=== PATIENT | male | born 1985 | race Caucasian/White ===

== ENCOUNTER 2025-02-09 20:47 | Emergency (ER) | payer OTHER, SELFPAY ==
--- NOTE | 2025-02-09 21:52 | ED.GENMED ---
History of Present Illness
General
Chief Complaint: Cardiac Symptoms
Source: patient
Exam Limitations: none
Time Seen by Provider: 02/09/25 21:41
Nursing documentation reviewed up to this point in time: agreed with except (Pt states he uses cocaine occasionally 'maybe once a month' last used about a month ago)
History of Present Illness
History of Present Illness:
39-year-old male w hx sleep apnea, IBS, presents for L neck, L arm, L upper chest pain. 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 Pains have been off and on since. Went to yesterday and had a normal EKG.
3 mos ago, 10 days ago and 2 days ago had 15 minute episodes of 'heavy heart palpitations' with no SOB, n/v or diaphoresis. No aggravating or relieving factors. Occurs several times every day.
He does sleep on his left arm and has had numbness in the arm upon awakening some mornings.
Past History
Past History
ED Past Medical History: Other ( sleep apnea, used to use CPAP but it got recalled and never got another one)
ED Past Surgical History: Orthopedic and Tonsilectomy
Social History
Tobacco: Non-smoker
Alcohol: None
Drug: None
Personal:
Living: with family
Review of Systems
Review of Systems
Allergies reviewed?: Yes
All Other Systems: ROS reviewed and negative except as documented in HPI and ROS
Cardiac: Reports chest pain
Musculoskeletal: Reports neck pain and other (Pain left arm)
Phy Exam
Physical Exam
Physical Exam:
GENERAL: No acute distress. A&Ox3.
CONSTITUTIONAL: Afebrile.
EYES: clear, conjunctivae normal
ENMT: moist mucus membranes
RESPIRATORY: Regular respirations, nonlabored, lungs clear.
CARDIOVASCULAR: Regular rate and rhythm, no murmurs, no rubs.
GI: Soft, nontender, normal BS
MUSCULOSKELETAL: Unable to reproduce pain with palpation of affected areas or with movement. Moves with ease. Well perfused.
SKIN: Warm, dry, pink
PSYCH: Normal mood and affect. Well kept, interactive and appropriate
NEUROLOGIC: Awake, alert and oriented. No focal neurological deficits
Course
Orders/Labs/Results
Orders:
Orders
02/09/25 20:47
ECG [Electrocardiogram (*1)] Urgent
Reason for Study: Chest Pain
02/09/25 20:48
EKG- Treatment ONCE
02/09/25 21:52
CR Chest - 2 Views Urgent
Comment:
Reason For Exam: chest pain
02/09/25 22:31
Complete Blood Count/With Diff Urgent
Comprehensive Metabolic Panel Urgent
Troponin I Urgent
Abnormal Lab Results
02/09/25
22:31
MPV 10.5 H fL
(7.4-10.4)
Absolute Monos (auto) 0.7 H 10^3/uL
(0.1-0.6)
Chloride 108 H mmol/L
(98-107)
Glucose 101 H mg/dl
(70-99)
ALT 54 H U/L
(0-50)
02/09/25 22:31
02/09/25 22:31
Vital Signs
Initial and Last Documented VS:
Initial Vital Signs
Temp Pulse Resp Pulse Ox
98.7 F 97 18 98
02/09/25 20:50 02/09/25 20:50 02/09/25 20:50 02/09/25 20:50
Last Documented Vital Signs
Temp Pulse Resp BP Pulse Ox
98.7 F 74 20 127/78 95
02/09/25 20:50 02/09/25 22:13 02/09/25 22:13 02/10/25 00:03 02/09/25 22:13
MDM/Problems Addressed
MDM/Problems Addressed:
39-year-old male w hx sleep apnea, IBS, presents for L neck, L arm, L upper chest pain. 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 Pains have been off and on since. Went to yesterday and had a normal EKG.
3 mos ago, 10 days ago and 2 days ago had 15 minute episodes of 'heavy heart palpitations' with no SOB, n/v or diaphoresis. No aggravating or relieving factors. Occurs several times every day.
He does sleep on his left arm and has had numbness in the arm upon awakening some mornings.
EKG NSR
CBC normal
CMP normal
CXR NAD
discussed dangers of using cocaine and it's affect on the heart, risk for heart attack
Referred to Cardiac hotline
*EKG
EKG Intrepretation Date: 02/09/25
Interpretation: normal
Heart Rate: 66
Rate: normal
Rhythm: sinus
[place]: normal axis
Interval: normal interval
QRS Pattern: normal QRS
Ischemia: no ischemia
*Critical Care Note
Total Time (30-74mins, 75-104mins- exclusive of procedures): Not Applicable
ED Attending Note
-
Portions of this chart may have been created with voice recognition software.� Occasional wrong word or��sound alike� substitutions may have occurred due to the inherent limitations of voice recognition software.
Discharge Plan
Departure
Patient Disposition: Home (Routine Discharge)
Date of Disposition: 02/10/25
Time of Disposition: 00:00
Patient with high blood pressure during this ER visit?: No
Condition: Good
Discharge Problem:
Atypical chest pain
Instructions: Chest Pain (DC), Chest Pain CBC Follow Up
Prescriptions:
No Action
oxycodone-acetaminophen [Endocet] 5-325 mg tablet
1 tab PO Q6H PRN (Reason: Pain) Qty: 10 0RF
Referrals:
Dominik Menard MD [Family Provider] -
Smitha Howe MD [Active] - Next open appointment
Activity Restrictions/Additional Instructions:
As we discussed, I sent your information the Cardiac hotline, someone will call you in the next 1-2 days to make appointment sooner rather than later for a more thorough cardiac evaluation.
No indication of heart attack or damage in your workup here today.
Interventions
Interventions:
*Risk Screen - Suicide Last Done: 02/09/25 20:50
*General Assessment Last Done: 02/09/25 20:50
*Neglect/Abuse Screening Last Done: 02/09/25 20:50
*ED- Fall Risk Assessment Last Done: 02/09/25 20:50
*ED COVID-19 Vaccine History Last Done: 02/09/25 20:50
*Nursing Disposition Last Done: 02/10/25 00:16
ED- Pulmonary Assessment Last Done: 02/09/25 21:30
ED- Cardiac Assessment Last Done: 02/09/25 21:30
Discharge Date and Time
Discharge Date/Time: 02/10/25 00:16
Print Language: CHILEAN
[2025-02-09 22:42] LABS: % Basophils 0.6 % (0-2); % Eosinophils 3.5 % (0-6); % Immature Granulocytes 0.2 % (0-0.5); % Lymphocytes 31.9 % (20.5-51.1); % Monocytes 7.5 % (1.7-9.3); % Neutrophils 56.3 % (42.2-75.2); Absolute Basophils 0.1 10^3/uL (0-0.2); Absolute Eosinophils 0.3 10^3/uL (0-0.7); Absolute Lymphocytes 2.8 10^3/uL (1.2-3.4); Absolute Monocytes 0.7 10^3/uL (0.1-0.6); Hematocrit 42.9 % (39.0-52.0); Hemoglobin 15.3 g/dL (13.0-18.0); Mean Corp Hgb Conc. 35.7 g/dL (33.0-37.0); Mean Corpuscular Hgb 30.5 pg (27.0-31.0); Mean Corpuscular Volume 85.5 fL (80.0-94.0); Mean Platelet Volume 10.5 fL (7.4-10.4); Nucleated Red Blood Cells % 0 % (-); Platelet Count 254 10^3/uL (130-400); Red Blood Cell Count 5.02 10^6/uL (4.70-6.10); White Blood Cell Count 8.8 10^3/uL (4.8-10.8)
[2025-02-09 22:56] LABS: ALT (SGPT) 54 U/L (0-50); AST (SGOT) 30 U/L (17-59); Albumin 4.6 g/dl (3.5-5.0); Alkaline Phosphatase 63 U/L (38-126); Blood Urea Nitrogen 13 mg/dl (9-20); Calcium 9.5 mg/dl (8.4-10.2); Carbon Dioxide 26 mmol/L (22-30); Chloride 108 mmol/L (98-107); Glucose 101 mg/dl (70-99); Potassium 3.8 mmol/L (3.5-5.1); Sodium 142 mmol/L (135-145); Total Bilirubin 0.5 mg/dl (0.2-1.3); Total Protein 7.4 g/dl (6.3-8.2); eGFR > 60.00
[2025-02-09 23:03] LABS: Troponin I < 0.012 ng/ml
[2025-02-10 00:01] VITALS: BP 127/78
[2025-02-10 00:03] VITALS: BP 127/78
== END 2025-02-10 00:16 | disposition home or self-care (01) ==
LOC: EMR 20:47
PROVIDERS: Registered Nurse; EMERGENCY PHYSICIAN Emergency Medicine; FAMILY PHYSICIAN Family Medicine
DX: R07.89 Other chest pain (principal); M54.2 Cervicalgia; M79.602 Pain in left arm; R20.0 Anesthesia of skin; F14.90 Cocaine use, unspecified, uncomplicated; G47.30 Sleep apnea, unspecified; K58.9 Irritable bowel syndrome, unspecified; J45.909 Unspecified asthma, uncomplicated; F17.210 Nicotine dependence, cigarettes, uncomplicated
CPT/HCPCS: 99283; 71046; 80053; 84484; 85025; 93005

== ENCOUNTER → 2025-03-16 10:40 | Outpatient (REF) | payer OTHER, SELFPAY | LOC: RCS 10:40 | PROVIDERS: ATTENDING PHYSICIAN Internal Medicine Cardiovascular Disease; FAMILY PHYSICIAN Physician Assistant Medical | DX: R07.89 Other chest pain (principal); R00.2 Palpitations | CPT/HCPCS: 93017 ==

== ENCOUNTER → 2025-05-18 10:14 | Outpatient (REF) | payer OTHER, SELFPAY | LOC: RCS 10:14 | PROVIDERS: ATTENDING PHYSICIAN Internal Medicine Cardiovascular Disease; FAMILY PHYSICIAN Physician Assistant Medical | DX: R00.2 Palpitations (principal); R07.89 Other chest pain | CPT/HCPCS: 93306 ==